=== PATIENT | male | born 1960 | race Caucasian/White ===

== ENCOUNTER 2020-04-05 12:12 | Outpatient (CLI) | payer MEDICARE, SELFPAY ==
--- NOTE | ~2020-04-05 | XR_ITS ---
EXAMINATION: XR lumbar spine 6V w bending DATE: 04/05/2020 12:49 INDICATION: Low back pain TECHNIQUE: Anteroposterior, lateral in neutral, flexion and extension, and bilateral oblique views of the lumbar spine, and cone-down lateral view of the lumbosacral junction were obtained. COMPARISON: 11/20/2008 FINDINGS: There are changes of anterior and posterior fusion at L5-S1. Bone alignment is normal. Ther e is no laxity with flexion or extension. There is no fracture. There is mild loss of intervertebral disc space height at L1-2. Mild chronic anterior wedging is noted in the lower thoracic spine and at L1. The vertebral body heights are otherwise maintained. 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 The bowel gas pattern is normal. IMPRESSION: 1. Changes of anterior and posterior fusion at L5-S1 and mild lumbar spondylosis without acute findin gs or significant interval change. Reviewed, dictated and finalized at location A. OUT WAITER/WAITRESS IMPRESSION: 1. Changes of anterior and posterior fusion at L5-S1 and mild lumbar spondylosi s without acute findings or significant interval change.
== END 2020-04-05 12:13 | disposition home or self-care (01) ==
PROVIDERS: PCP Family Medicine; Visit Provider Family Medicine
DX: R52 Pain, unspecified (principal); S33.5XXA Sprain of ligaments of lumbar spine, initial encounter; M96.1 Postlaminectomy syndrome, not elsewhere classified; M47.816 Spondylosis without myelopathy or radiculopathy, lumbar region
CPT/HCPCS: 72114

== ENCOUNTER 2022-03-12 09:15 | Outpatient (CLI) | payer MEDICARE, SELFPAY ==
--- NOTE | ~2022-03-12 | CT_ITS ---
EXAMINATION: CT chest high resolution w con DATE: 03/12/2022 09:46 INDICATION: Other nonspecific abnormal finding of lung field. Lung nodule. TECHNIQUE: Computed tomography (CT) of the chest was performed without intravenous contrast. Addition al 3D reconstructions utilizing coronal maximum intensity projection (MIP) were performed. Automated exposure control and iterative reconstruction technique were employed. The dose-length product was 35 4.67 mGy-cm. COMPARISON: CT abdomen dated 03/08/[address] thoracic spine dated 06/25/2012 FINDINGS: There are few scattered bilateral pulmonary nodules, the largest measuring 6 mm in the right middle a nd bilateral lower lobes are unchanged since CT dated 03/08/2004 consistent with old granulomatous dis ease. Additional 6 mm triangular likely intrafissural lymph node along the left major fissure unchang ed since 06/25/2012. No new or enlarging pulmonary nodules, pneumonia, pulmonary edema or pleural effus ion. Heart size is normal. No pericardial effusion. Thoracic aorta is normal in caliber with no disse ction. No pathologically enlarged thoracic lymphadenopathy. Air-fluid levels in the visualized transv erse colon suggestive of diarrhea. Visualized upper abdomen is otherwise unremarkable. Mild thoracic spondylosis. IMPRESSION: 1. A few chronic small noncalcified granulomata measuring up to 6 mm in the bilateral lower lungs whi ch given the interval stability require no further follow-up. Reviewed, dictated and finalized at location B. LRY ENGRAVER IMPRESSION: 1. A few chronic small noncalcified granulomata measuring up to 6 mm in the ulices ateral lower lungs which given the interval stability require no further follow -up.
[2022-03-12 09:38] LABS: Estimated Glomerular Filt Rate > 60
== END 2022-03-12 09:16 ==
PROVIDERS: PCP Family Medicine; Visit Provider Nurse Practitioner Gerontology
DX: R91.8 Other nonspecific abnormal finding of lung field (principal)
CPT/HCPCS: 71260; Q9967